=== PATIENT | female | born 1960 | race Caucasian/White ===

== ENCOUNTER → 2017-03-02 | Outpatient (CLI) | payer MEDICARE, BC ==
[~2017-03-02] MED LIST: ACYCLOVIR200 MG PO; ESTRACE0.5 MG PO; LIPITOR40 MG PO; NEURONTIN300 MG PO; NORCO 5-325 TA1 EACH PO; NORVASC5 MG PO; PROTONIX40 MG PO; TOPROL XL25 MG PO; TYLENOL EXTRA500 MG PO; ULTRAM50 MG PO; ZANAFLEX4 MG PO
== END | disposition disaster alternative care site (69) ==
LOC: GPOC 02-25 17:00 → GRAD 06:41 → GPOC 07:00 → EDSTATUS 17:00 → GPOC 17:00
PROVIDERS: Anesthesiology Pain Medicine
PROC: B01BYZZ Fluoroscopy of Spinal Cord using Other Contrast (ICD-10-PCS; principal; 2017-03-02)
DX: M54.9 Dorsalgia, unspecified (principal); G93.5 Compression of brain